=== PATIENT | male | born 1980 | race Caucasian/White ===

== ENCOUNTER 2016-09-19 11:34 | Emergency (ER) | payer SELFPAY ==
[~2016-09-19] VITALS: Ht 175.3 cm; Wt 79.4 kg
--- NOTE | 2016-09-19 11:34 | NUR ---
Patient was BIBA at this time.
--- NOTE | 2016-09-19 11:37 | NUR ---
Patient taken to bed 04 via gurney per EMS.
[2016-09-19 11:42] VITALS: BP 170/97
[2016-09-19] MEDS ORDERED: NACL 0.9% 1,000 ML IV SCH (11:42)
[2016-09-19] MEDS ORDERED: LORazepam 2 MG/ML VIAL IVP ONE ×3 (11:45→11:50)
[2016-09-19] MEDS ORDERED: MULTIVITAMIN-12 10 ML, THIAMINE 100 MG, MAGNESIUM SULFATE 50% 2,000 MG, FOLIC ACID 5 MG... IV ONE ×5 (11:45)
--- NOTE | 2016-09-19 11:45 | NUR ---
PATIENT PRESENTS TO ED WITH facial trauma s/p seizure while at work . PT STATES stopped drinking etoh 2 days ago . DENIES N/V/D; SKIN IS PINK/WARM/DRY; AAOX4 WITH EVEN AND STEADY GAIT; LUNGS CLEAR BL; HR EVEN AND REGULAR; PT DENIES ANY FEVER, CP, SOB, OR COUGH AT THIS TIME; PATIENT STATES PAIN OF 8/10 AT THIS TIME; VSS; PATIENT POSITIONED FOR COMFORT; HOB ELEVATED; BEDRAILS UP X2; BED DOWN. ER MD MADE AWARE OF PT STATUS. seizure precautions taken---rails padded, guerney low and locked position
[2016-09-19] MEDS ORDERED: MULTIVITAMIN-12 10 ML, THIAMINE 100 MG, MAGNESIUM SULFATE 50% 2,000 MG, FOLIC ACID 5 MG... IV SCH ×5 (11:47)
--- NOTE | 2016-09-19 11:59 | NUR ---
Dr. Villalba evaluating patient at bedside.
--- NOTE | 2016-09-19 12:10 | NUR ---
pt to ct via [facility]--a/0 x4 no s/s resp distress
[2016-09-19 12:17] LABS: BASOPHILS # (AUTO) 0.1 K/uL (0.00-0.22); BASOPHILS % (AUTO) 1.6 % (0.0-2.0); EOSINOPHILS # (AUTO) 0.1 K/uL (0-0.4); EOSINOPHILS % (AUTO) 1.6 % (0.0-4.0); HEMATOCRIT 42.8 % (36-52); HEMOGLOBIN 14.8 g/dL (12.0-18.0); LYMPHOCYTES # (AUTO) 0.4 K/uL (2.0-11.5); LYMPHOCYTES % (AUTO) 10.3 % (20.5-51.1); MEAN CORPUSCULAR HEMOGLOBIN 34 pg (27-31); MEAN CORPUSCULAR HGB CONC 35 g/dL (33-37); MEAN CORPUSCULAR VOLUME 99 fL (80-94); MONOCYTES # (AUTO) 0.4 K/uL (0.8-1.0); MONOCYTES % (AUTO) 8.3 % (1.7-9.3); NEUTROPHILS # (AUTO) 3.2 K/uL (1.8-7.7); NEUTROPHILS % (AUTO) 78.2 % (42.2-75.2); PLATELET COUNT (AUTO) 77 K/uL (140-450); RED BLOOD CELL COUNT(AUTO) 4.33 MIL/uL (4.20-6.10); RED CELL DISTRIBUTION WIDTH 12.2 % (11.6-13.7)
--- NOTE | 2016-09-19 12:17 | NUR ---
Patient going to CT via dion jalloh.
[2016-09-19 12:25] LABS: WHITE BLOOD COUNT (AUTO) 4.2 K/uL (4.8-10.8)
--- NOTE | 2016-09-19 12:25 | NUR ---
Patient back from CT via [facility]
--- NOTE | 2016-09-19 12:28 | NUR ---
returned from ct--a/ox 4 no s/s resp distress---suture tray at bedside---pt remains tremulous, will medicate as written.
[2016-09-19 12:31] LABS: ANION GAP 18.3 (8-16); CALCIUM 8.6 mg/dL (8.5-10.1); CARBON DIOXIDE 23.2 mmol/L (21-32); POTASSIUM 3.5 mmol/L (3.5-5.1)
[2016-09-19 12:37] LABS: ALBUMIN 3.7 g/dL (3.4-5.0); MAGNESIUM 1.7 mg/dL (1.8-2.4); TOTAL BILIRUBIN 1.4 mg/dL (0.0-1.0); TOTAL PROTEIN, SERUM 6.9 g/dL (6.4-8.2)
--- NOTE | 2016-09-19 12:43 | NUR ---
medicated as instructed, will continue to monitor and observe for changes and seizure activity. x2 sr up guerney low and locked position.
[2016-09-19] MEDS ORDERED: LIDOCAINE/EPI 1% 1:100000 20 ML VIAL INJ ONE (13:10)
[2016-09-19] MEDS ORDERED: NEOMYCIN/POLYMYXIN/BACITRACIN 0.9 GM/1 PKT TP ONE (13:11)
--- NOTE | 2016-09-19 13:22 | NUR ---
no seizure activity noted , pt awake alert---
--- NOTE | 2016-09-19 13:38 | NUR ---
pt pulled out iv right ac 18ga---removed gown and put shirt back on---stated he has to go to the bathroom!. i asked pt why didnt he simply as for assistance?, pt replied, "he didnt know". pt states he feels much better and ambulated to restroom. Ester SAUNDERS witnessed. pt steady gait, mild tremors noted. notified.
[2016-09-19 13:55] LABS: APPEARANCE,URINE CLEAR (CLEAR); BILIRUBIN,URINE NEGATIVE (NEGATIVE); BLOOD, URINE TRACE-L (NEGATIVE); COLOR,URINE YELLOW (YELLOW); LEUKOCYTE ESTERASE ,URINE NEGATIVE (NEGATIVE); NITRITE, URINE NEGATIVE (NEGATIVE); PROTEIN,URINE NEGATIVE (NEGATIVE); UGLUCOSE NEGATIVE (NEGATIVE); UROBILINOGEN,URINE 0.2 EU/dL (0.2 - 1)
--- NOTE | 2016-09-19 14:10 | NUR ---
pt claude, said was going out for a smoke and did not return. no visual made out side our ER . aware
[2016-09-19 14:11] LABS: BACTERIA,URINE None Seen /HPF (None Seen); RBC,URINE 0-3 /HPF (0-5); SQUAMOUS EPITHELIAL CELL,UR None Seen /LPF (0-3 (FEW)); WBC,URINE 0-3 /HPF (0-5)
[2016-09-19 14:14] VITALS: BP 137/90
--- NOTE | 2016-09-19 14:15 | NUR ---
PATIENT ELOPED FROM FACILITY. DISCHARGE INSTRUCTIONS NOT GIVEN TO PATIENT. DR. higgins NOTIFIED.
== END 2016-09-19 14:15 | disposition left against medical advice (07) ==
LOC: MED 11:34
DX: G40.89 Other seizures (principal); F10.239 Alcohol dependence with withdrawal, unspecified; K70.10 Alcoholic hepatitis without ascites; E83.42 Hypomagnesemia; E83.39 Other disorders of phosphorus metabolism
CPT/HCPCS: 36415; 70450; 80053; 81001; 83735; 84100; 85025; 96365; 96366; 96375; 96376; 99285; A9153; J2001; J2060; J3411; J3475; J3490; J7030

== ENCOUNTER 2020-07-19 12:27 | Emergency (ER) | payer MEDICAID ==
[~2020-07-19] VITALS: Ht 175.3 cm; Wt 74.8 kg
--- NOTE | 2020-07-19 12:30 | NUR ---
Patient BIBA ALS, transferred to bed 7. RN evaluating the patient at bedside.
[2020-07-19 12:31] VITALS: BP 148/98
--- NOTE | 2020-07-19 12:35 | NUR ---
Lab at bedside.
--- NOTE | 2020-07-19 12:45 | NUR ---
40 y/o M BIBA from home with c/c 3 witnessed tonic clonic seizures. Patient presente with laceration to nose with controlled bleeding prior to arrival. Pt states he stopped drinking alcohol 3 days ago and has been having seizures since. Pt states he had 3 back to back seizures of unknown duration. Denies taking any medications except marijuana. Denies dizziness, N/V/D, SOB, CP, abdominal pain, headache, fever/chills, cold-like symptoms. PMH/Meds: Denies NKA
[2020-07-19 12:55] LABS: BASOPHILS % (AUTO) 1.2 % (0.0-2.0); EOSINOPHILS % (AUTO) 1.2 % (0.0-4.0); HEMATOCRIT 44.3 % (36-52); HEMOGLOBIN 15.3 g/dL (12.0-18.0); LYMPHOCYTES # (AUTO) 0.7 K/uL (2.0-11.5); LYMPHOCYTES % (AUTO) 24.2 % (20.5-51.1); MEAN CORPUSCULAR HEMOGLOBIN 34 pg (27-31); MEAN CORPUSCULAR HGB CONC 35 g/dL (33-37); MEAN CORPUSCULAR VOLUME 99.2 fL (80-94); MONOCYTES # (AUTO) 0.4 K/uL (0.8-1.0); MONOCYTES % (AUTO) 14.9 % (1.7-9.3); NEUTROPHILS # (AUTO) 1.7 K/uL (1.8-7.7); NEUTROPHILS % (AUTO) 58.5 % (42.2-75.2); PLATELET COUNT (AUTO) 34 K/uL (140-450); RED BLOOD CELL COUNT(AUTO) 4.46 MIL/uL (4.20-6.10); RED CELL DISTRIBUTION WIDTH 13.2 % (11.6-13.7); WHITE BLOOD COUNT (AUTO) 2.9 K/uL (4.8-10.8)
--- NOTE | 2020-07-19 13:00 | NUR ---
principal technical writer at bedside.
--- NOTE | 2020-07-19 13:01 | NUR ---
The patient's girlfriend, Chyna, may be reached at [phone].
[2020-07-19 13:13] LABS: ALBUMIN 4.3 g/dL (3.4-5.0); ANION GAP 17.9 (8-16); CARBON DIOXIDE 23.6 mmol/L (21-32); CREATININE 1.1 mg/dL (0.6-1.3); POTASSIUM 3.5 mmol/L (3.5-5.1); TOTAL BILIRUBIN 1.8 mg/dL (0.0-1.0)
--- NOTE | 2020-07-19 13:40 | NUR ---
Patient resting in position of comfort with seizure precautions in place. Patient denies any complaints at this time. Respirations even/unlabored. cafeteria monitor in place. Bed locked in lowest position, side rails x 2, call light in reach.
--- NOTE | 2020-07-19 13:45 | NUR ---
Dr. Bower is evaluating patient at bedside.
--- NOTE | 2020-07-19 13:45 | NUR ---
Tamara swab collected, walked to lab and handed to jacek Jay tech.
--- NOTE | 2020-07-19 13:54 | NUR ---
Patient ambulated to restroom for urine sample with steady/even gait.
[2020-07-19] MEDS ORDERED: LIB25 PO (13:56)
--- NOTE | 2020-07-19 14:10 | NUR ---
Patient presents with both eyes opened. Advised of discharge and that girlfriend, Chyna is en route to pick patient up. Patient denies any complaints at this time. Respirations even/unlabored. monitoring coordinator in place. Bed locked in lowest position, side rails x 2, call light in reach. Seizure precautions remain in place.
[2020-07-19 14:15] VITALS: BP 134/92
--- NOTE | 2020-07-19 14:15 | NUR ---
Patient discharged with v/s stable. Written and verbal after care instructions given and explained. Patient alert, oriented and verbalized understanding of instructions. Ambulatory with steady gait. All questions addressed prior to discharge. ID band removed. Patient advised to follow up with PMD. Rx of Librium given. Patient educated on indication of medication including possible reaction and side effects. Opportunity to ask questions provided and answered.
== END 2020-07-19 14:15 | disposition home or self-care (01) ==
LOC: MED 12:27
DX: S00.31XA Abrasion of nose, initial encounter (principal); R56.9 Unspecified convulsions; F10.239 Alcohol dependence with withdrawal, unspecified; Y90.0 Blood alcohol level of less than 20 mg/100 ml; F17.200 Nicotine dependence, unspecified, uncomplicated; F12.90 Cannabis use, unspecified, uncomplicated; Z79.899 Other long term (current) drug therapy; X58.XXXA Exposure to other specified factors, initial encounter; Y93.89 Activity, other specified; Y92.89 Other specified places as the place of occurrence of the external cause; Y99.8 Other external cause status
CPT/HCPCS: 36415; 71045; 80053; 83880; 84484; 85025; 87426; 93005; 99285; G0482